=== PATIENT | female | born 1985 | race Caucasian/White ===

== ENCOUNTER 2019-05-30 13:25 | Inpatient (IN) | payer MEDICAID ==
[~2019-05-30] VITALS: Ht 165.1 cm; Wt 80.4 kg
[2019-05-30 14:00] VITALS: Ht 165.1 cm; Wt 80.4 kg
[2019-05-30] MEDS ORDERED: LACTATED RINGER'S 1,000 ML IV SCH (19:44)
[2019-05-30] MEDS ORDERED: OXYTOCIN 30 UNITS/LR 500 ML IV SCH (20:00)
[2019-05-30] MEDS ORDERED: MISOPROSTOL 200 MCG TAB PR PRN (20:00)
[2019-05-30] MEDS ORDERED: OXYTOCIN 30 UNITS/LR 500 ML IV PRN (20:00)
[2019-05-30] MEDS ORDERED: METHYLERGONOVINE 0.2 MG INJ IM PRN (20:00)
[2019-05-30] MEDS ORDERED: CARBOPROST 250 MCG INJ IM PRN (20:00)
[2019-05-30] MEDS ORDERED: CEFAZOLIN 2 GM/50 ML (PMX) 50 ML IVPB SCH (20:30)
[2019-05-30] MEDS ORDERED: ROCURONIUM 50 MG INJ ONE (21:44)
[2019-05-30] MEDS ORDERED: DIPHENHYDRAMINE 50 MG INJ ONE (21:49)
[2019-05-30] MEDS ORDERED: ONDANSETRON 4 MG INJ ONE (21:49)
[2019-05-30] MEDS ORDERED: FAMOTIDINE 20 MG INJ ONE (21:49)
[2019-05-30] MEDS ORDERED: DEXAMETHASONE 4 MG/ML 1 ML INJ ONE (21:49)
[2019-05-30] MEDS ORDERED: morphine SULFATE/PF (10 MG/10 ML) INJ ONE (21:51)
[2019-05-30] MEDS ORDERED: MIDAZOLAM 1 MG/ML 2 ML INJ ONE (21:51)
[2019-05-30] MEDS ORDERED: SUGAMMADEX SODIUM 200 MG/2 ML VIAL IV ONE (22:10)
[2019-05-30] MEDS ORDERED: HYDROmorphONE 0.5 MG/0.5 ML SYG ONE ×2 (22:54)
[2019-05-30] MEDS ORDERED: ONDANSETRON 4 MG INJ IV PRN (23:00)
[2019-05-30] MEDS ORDERED: HYDROmorphONE 1 MG/ML SYG IV PRN (23:00)
[2019-05-30] MEDS ORDERED: ZOLPIDEM 5 MG TAB PO PRN (23:00)
[2019-05-30] MEDS ORDERED: HYDROmorphONE 0.5 MG/0.5 ML SYG IV PRN ×2 (23:00)
[2019-05-30] MEDS ORDERED: NALOXONE (0.4 MG/ML) INJ IV PRN (23:00)
[2019-05-30 23:15] VITALS: BP 129/88; RESP 17
[2019-05-30 23:45] VITALS: BP 129/88; RESP 17
[2019-05-31] VITALS (11 sets, daily range): BP systolic 103–135; BP diastolic 54–88; PULSE 77–105; RESP 17–18
[2019-05-31] MEDS: KETOROLAC 30 MG INJ IV PRN ×3 (01:07→19:56)
[2019-05-31] MEDS ORDERED: METHYLERGONOVINE 0.2 MG INJ IM PRN (01:30)
[2019-05-31] MEDS ORDERED: CARBOPROST 250 MCG INJ IM PRN (01:30)
[2019-05-31] MEDS ORDERED: MISOPROSTOL 200 MCG TAB PR PRN (01:30)
[2019-05-31] MEDS ORDERED: NACL 0.9% 3 ML SYG IV SCH (01:30)
[2019-05-31] MEDS ORDERED: OXYTOCIN 30 UNITS/LR 500 ML IV PRN (01:30)
[2019-05-31] MEDS ORDERED: OXYTOCIN 30 UNITS/LR 500 ML IV SCH (01:30)
[2019-05-31] MEDS: DIPHENHYDRAMINE 50 MG INJ IV PRN ×2 (03:42→14:29)
[2019-05-31] MEDS: LACTATED RINGER'S 1,000 ML IV SCH ×2 (13:15→21:00)
[2019-05-31] MEDS: LANOLIN HPA 1 PKT TOP PRN (19:37)
[2019-05-31] MEDS: OXYCODONE/ACETAMINOPHEN (5/325) TAB PO PRN (22:46)
[2019-06-01] MEDS: IBUPROFEN 600 MG TAB PO SCH ×4 (00:13→17:32)
[2019-06-01 04:40] VITALS: BP 110/59; PULSE 77; RESP 18
[2019-06-01 08:00] VITALS: BP 122/73; PULSE 95; RESP 18
[2019-06-01] MEDS: LANOLIN HPA 1 PKT TOP PRN (08:46)
[2019-06-01] MEDS: OXYCODONE/ACETAMINOPHEN (5/325) TAB PO PRN ×3 (08:46→20:10)
[2019-06-01 15:55] VITALS: BP 115/55; PULSE 101; RESP 16
[2019-06-01 20:20] VITALS: BP 121/86; PULSE 92; RESP 18
[2019-06-02] MEDS: IBUPROFEN 600 MG TAB PO SCH ×3 (00:10→11:34)
[2019-06-02 04:40] VITALS: BP 107/63; PULSE 94; RESP 17
[2019-06-02] MEDS: OXYCODONE/ACETAMINOPHEN (5/325) TAB PO PRN (06:20)
[2019-06-02 08:00] VITALS: BP_SYST 115; PULSE 85; RESP 18
[2019-06-02] MEDS ORDERED: DIPHTH/TET/ACEL PERTUSS (ADULT) 0.5 ML VIAL IM* ONE (09:00)
[2019-06-02 11:58] VITALS: BP 113/71; PULSE 75; RESP 16
== END 2019-06-02 18:23 | disposition home or self-care (01) | DRG 788 ==
LOC: OBT 13:25 → L-D 13:26 → OBT 17:10 → L-D 21:19 → PP1 05-31 01:15
PROVIDERS: ADMIT Obstetrics & Gynecology; ATTEND Obstetrics & Gynecology
PROC: 4A1HXCZ Monitoring of Products of Conception, Cardiac Rate, External Approach (ICD-10-PCS; 2019-05-30)
PROC: 10D00Z1 Extraction of Products of Conception, Low, Open Approach (ICD-10-PCS; principal; 2019-05-30 21:00)
DX: O32.1XX0 Maternal care for breech presentation, not applicable or unspecified (principal); Z3A.38 38 weeks gestation of pregnancy; Z37.0 Single live birth
CPT/HCPCS: 76818; 80307; 85025; 85610; 85730; 86592; 86850; 86900; 86901; 87340; 99464; G0463; J0690; J1100; J1170; J1200; J1885; J2210; J2250; J2274; J2405; J2590; J3010; J7120